=== PATIENT | male | born 1960 | race Caucasian/White ===

== ENCOUNTER 2019-02-17 05:59 | Emergency (ER) | payer OTHER ==
[~2019-02-17] VITALS: Ht 177.8 cm; Wt 77.1 kg
[2019-02-17 06:02] VITALS: BP 134/83
--- NOTE | 2019-02-17 06:18 | NUR ---
58 Y/O MALE C/O ABD PAIN X TODAY. PT STATES HE HAD DIAHRREA FOR 3 WEEKS AND SAW HIS PRIMARY DR 1 WEEK AND 1/2 AGO AND DIAGNOSISED HIM WITH POSS PARASITE AND GAVE HIM MEDICATION CALLED METRONIDAZOLE AND HAD STOOL SAMPLES DONE. PT ALSO SATTES HE WAS SCHEUDLE TO SEE HIS PRIMARY TODAY TO FOLLOW UP ON THE RESULTS. ABD PAIN IS LOCATED ON THE LUQ, NONTENDER, DISTENDED, HARD, ACTIVE BS. IN UMBILICAL REGION OF ABD SHOWS DISTENDTION AND PT STATES HE HAD A UMBILICAL HERNIA REPAIR. RATES PAIN 2/10 AND DESCRIBES IT SORENESS. ALLERGIES: PENICILLIN AND AMOXCILLIN. PMH: DM, UMBILICAL HERNIA.
--- NOTE | 2019-02-17 06:24 | NUR ---
VSS. FATHER AT BEDSIDE.
--- NOTE | 2019-02-17 06:24 | NUR ---
NO N,V. PT DENIES ANY BLOOD IN THE STOOL. AND SAID THE DIAHRREA SUBSIDE SINCE MEDICATION STARTED.
--- NOTE | 2019-02-17 06:31 | NUR ---
AT BEDSIDE TO YISSEL ROBLES
--- NOTE | 2019-02-17 06:41 | NUR ---
LAB AT BEDSIDE.
[2019-02-17 06:57] LABS: APPEARANCE,URINE CLEAR (CLEAR); BILIRUBIN,URINE NEGATIVE (NEGATIVE); BLOOD, URINE NEGATIVE (NEGATIVE); COLOR,URINE YELLOW (YELLOW); LEUKOCYTE ESTERASE ,URINE NEGATIVE (NEGATIVE); NITRITE, URINE NEGATIVE (NEGATIVE); PH,URINE 5.5 (5.0-9.0); UGLUCOSE 3+ (NEGATIVE)
[2019-02-17 06:57] LABS: BASOPHILS # (AUTO) 0.1 K/uL (0.00-0.22); BASOPHILS % (AUTO) 1.4 % (0.0-2.0); EOSINOPHILS # (AUTO) 0.2 K/uL (0-0.4); HEMATOCRIT 43.7 % (36-52); HEMOGLOBIN 14.8 g/dL (12.0-18.0); LYMPHOCYTES # (AUTO) 1.4 K/uL (2.0-11.5); LYMPHOCYTES % (AUTO) 23.4 % (20.5-51.1); MEAN CORPUSCULAR HEMOGLOBIN 30 pg (27-31); MEAN CORPUSCULAR HGB CONC 34 g/dL (33-37); MEAN CORPUSCULAR VOLUME 88.3 fL (80-94); MONOCYTES # (AUTO) 0.5 K/uL (0.8-1.0); MONOCYTES % (AUTO) 9.2 % (1.7-9.3); NEUTROPHILS # (AUTO) 3.6 K/uL (1.8-7.7); PLATELET COUNT (AUTO) 234 K/uL (140-450); RED BLOOD CELL COUNT(AUTO) 4.95 MIL/uL (4.20-6.10); RED CELL DISTRIBUTION WIDTH 13.8 % (11.6-13.7); WHITE BLOOD COUNT (AUTO) 5.8 K/uL (4.8-10.8)
[2019-02-17 07:04] LABS: RBC,URINE NONE SEEN /HPF (0-5); WBC,URINE 0-5 /HPF (0-5)
[2019-02-17 07:07] LABS: ANION GAP 11.2 (8-16); CARBON DIOXIDE 29.8 mmol/L (21-32)
[2019-02-17 07:22] LABS: ALBUMIN 4.2 g/dL (3.4-5.0); TOTAL BILIRUBIN 0.6 mg/dL (0.0-1.0)
[2019-02-17 07:24] LABS: BARBITURATE, URINE NEG. ng/ml (NEG <=200); BENZODIAZEPINE, URINE NEG. ng/mL (NEG <=200); CANNABINOID, URINE NEG. ng/mL (NEG <=50); COCAINE, URINE NEG. ng/mL (NEG <=300); OPIATE, URINE NEG. ng/mL (NEG <=2000); PHENCYCLIDINE SCREEN,URINE NEG. ng/mL (NEG <=25)
--- NOTE | 2019-02-17 07:46 | NUR ---
PT RESTING IN BED, VSS STABLE, FAMILY AT BEDSIDE, SIDE RAIL X1
--- NOTE | 2019-02-17 07:54 | NUR ---
DR KELLY AT BEDSIDE
[2019-02-17 08:07] VITALS: BP 156/93
--- NOTE | 2019-02-17 08:07 | NUR ---
Patient discharged with v/s stable. Written and verbal after care instructions given and explained. Patient verbalized understanding. Ambulatory with steady gait. All questions addressed prior to discharge. Advised to follow up with PMD.
== END 2019-02-17 08:07 | disposition home or self-care (01) ==
LOC: MED 05:59
DX: R10.9 Unspecified abdominal pain (principal); I10 Essential (primary) hypertension; F15.90 Other stimulant use, unspecified, uncomplicated; E11.65 Type 2 diabetes mellitus with hyperglycemia; Z88.0 Allergy status to penicillin
CPT/HCPCS: 36415; 80053; 80305; 81001; 83690; 85025; 99283

== ENCOUNTER 2021-01-01 14:32 | Emergency (ER) | payer OTHER ==
[~2021-01-01] VITALS: Ht 177.8 cm; Wt 79.8 kg
[2021-01-01 14:38] VITALS: BP 121/79
--- NOTE | 2021-01-01 14:44 | NUR ---
PT AMBULATED TO BED
--- NOTE | 2021-01-01 15:09 | NUR ---
60 Y/O MALE C/O HIGH BLOOD SUGAR FOR 3 DAYS IN 400'S. TAKES METFORMIN AT HOME. 330 BLOOD SUGAR IN TRIAGE. PT DENIES ANY SOB, CHEST PAIN, N/V, CHILLS AT THIS TIME. PT STATED HE HAS HAD SOME BLURRED VISION, MINOR TUBBS, AND FATIGUE FOR THE PAST 2 DAYS. SKIN IS DRY AND INTACT. BREATH SOUNDS CLEAR AND EQUAL CHEST RISE AND FALL NOTED MEDHX:DM ALLERGIES: PENICILLIN
[2021-01-01 16:26] LABS: ANION GAP 9.2 (8-16); CARBON DIOXIDE 29.3 mmol/L (21-32); POTASSIUM 4.5 mmol/L (3.5-5.1)
--- NOTE | 2021-01-01 16:52 | NUR ---
PT MOVED TO CHAIR C
[2021-01-01] MEDS: INSULIN LISPRO 100 UNITS/ML VIAL SUBQ ONE (17:01)
--- NOTE | 2021-01-01 17:02 | NUR ---
INSULIN HUMALOG 5 UNITS GIVEN TO PATIENT. LUZ ELENA WEST WITNESSED AND CO-SIGNED
--- NOTE | 2021-01-01 17:18 | NUR ---
PT PROVIDED WITH WATER AT THIS TIME
--- NOTE | 2021-01-01 17:18 | NUR ---
DR. BURGESS BEDSIDE SPEAKING WITH PATIENT
--- NOTE | 2021-01-01 17:26 | NUR ---
Patient appears to be resting comfortably in bed. Vital Signs within normal limits. Respirations even and unlabored.
[2021-01-01 17:32] VITALS: BP 119/64
== END 2021-01-01 17:32 | disposition home or self-care (01) ==
LOC: MED 14:32
DX: E11.65 Type 2 diabetes mellitus with hyperglycemia (principal); E86.0 Dehydration; Z88.0 Allergy status to penicillin
CPT/HCPCS: 36415; 80048; 96372; 99283; J1815

== ENCOUNTER 2021-12-27 10:43 | Emergency (ER) | payer OTHER ==
[~2021-12-27] VITALS: Ht 177.8 cm; Wt 80.5 kg
[2021-12-27 10:45] VITALS: BP 173/89
--- NOTE | 2021-12-27 10:55 | NUR ---
Satinder cunningham in ED - 12/27/21 at 1056 by MED1 PT AMB TO BED 1.
--- NOTE | 2021-12-27 10:58 | NUR ---
C/O LEFT BIG TOE PAIN & SMALL BLACK SPOT X 1 WEEK. BLOOD SUGAR 117 AT THIS TIME. PMH: DM TYPE2 MED: METFORMIN, GLIPIZIDE
[2021-12-27 11:54] VITALS: BP 137/82
--- NOTE | 2021-12-27 11:54 | NUR ---
Patient discharged with v/s stable. Written and verbal after care instructions ABOUT CORNS AND CALLUSES given and explained. Patient verbalized understanding. Ambulatory with steady gait. All questions addressed prior to discharge. Advised to follow up with PMD.
== END 2021-12-27 11:54 | disposition home or self-care (01) ==
LOC: MED 10:43
DX: L03.032 Cellulitis of left toe (principal); E11.9 Type 2 diabetes mellitus without complications; Z79.4 Long term (current) use of insulin; Z79.899 Other long term (current) drug therapy
CPT/HCPCS: 99281

== ENCOUNTER 2022-01-02 13:53 | Inpatient (IN) | payer OTHER ==
[~2022-01-02] VITALS: Ht 172.7 cm; Wt 73.5 kg
[2022-01-02 14:12] VITALS: BP 124/79
--- NOTE | 2022-01-02 15:51 | NUR ---
PT TAKEN TO XRAY VIA WHEELCHAIR
[2022-01-02 15:56] LABS: BASOPHILS # (AUTO) 0.1 K/uL (0.00-0.22); EOSINOPHILS # (AUTO) 0.2 K/uL (0-0.4); EOSINOPHILS % (AUTO) 2.8 % (0.0-4.0); HEMATOCRIT 43.1 % (36-52); HEMOGLOBIN 14.9 g/dL (12.0-18.0); LYMPHOCYTES # (AUTO) 1.7 K/uL (2.0-11.5); LYMPHOCYTES % (AUTO) 22.8 % (20.5-51.1); MEAN CORPUSCULAR HEMOGLOBIN 30 pg (27-31); MEAN CORPUSCULAR HGB CONC 35 g/dL (33-37); MEAN CORPUSCULAR VOLUME 87.9 fL (80-94); MONOCYTES # (AUTO) 0.7 K/uL (0.8-1.0); MONOCYTES % (AUTO) 9.1 % (1.7-9.3); NEUTROPHILS # (AUTO) 4.8 K/uL (1.8-7.7); NEUTROPHILS % (AUTO) 64.3 % (42.2-75.2); PLATELET COUNT (AUTO) 233 K/uL (140-450); RED CELL DISTRIBUTION WIDTH 14.6 % (11.6-13.7); WHITE BLOOD COUNT (AUTO) 7.5 K/uL (4.8-10.8)
--- NOTE | 2022-01-02 16:04 | NUR ---
PT BROUGHT BACK VIA WHEELCHAIR
--- NOTE | 2022-01-02 16:05 | NUR ---
61YO MALE PT C/O DIZZINESS X3DAYS. REPORTS FAINTING X2 / +HEAD INJURY WHILE GOING ON WALK ON SATURDAY. STATES HE FELT "LIGHTHEADED" PRIOR TO EPISODES. DENIES DIZZINESS TODAY BUT CAME TO ER DUE TO "FUZZY FEELING" AND "NOT FEELING RIGHT". DENIES CHEST PAIN, N/V/D, SOB, FEVER OR CHILLS. NOTES PREVIOUS S/S X1YEAR AGO DUE TO DEHYDRATION. PT HAS WATERBOTTLE OF 33.8 fl oz AT BEDSIDE AND STATES THAT IS ALL HE HAS DRANK TODAY. PT AAOX4, RESPIRATIONS EVEN AND UNLABORED. ON WEAVER APPRENTICE, BED AT LOWEST POSITION, BED RAILS UPX2. HX:DIABETES ALLERGIES:PENICILLIN
[2022-01-02 16:50] LABS: ALBUMIN 3.8 g/dL (3.4-5.0); ANION GAP 11.4 (8-16); ASPARTATE AMINOTRANSFERASE 17 U/L (15-37); CHLORIDE 102 mmol/L (98-107); CREATININE 1.1 mg/dL (0.6-1.3); GFR ARICAN-AMERICAN 88 mL/min (>90); GLUCOSE 113 mg/dL (74-106); POTASSIUM 4.4 mmol/L (3.5-5.1); SODIUM SERUM 140 mmol/L (136-145); TOTAL BILIRUBIN 0.4 mg/dL (0.0-1.0); UREA NITROGEN, BLOOD 20 mg/dL (7-18)
[2022-01-02] MEDS ORDERED: ASPIRIN 325 MG TAB PO ONE (17:05)
--- NOTE | 2022-01-02 17:05 | NUR ---
pt swabbed for covid(miguel). handed to lab
[2022-01-02] MEDS ORDERED: ASPIRIN 81 MG TAB.CHEW PO ONE (17:25)
[2022-01-02] MEDS ORDERED: LORazepam 2 MG/ML VIAL IVP PRN (17:55)
[2022-01-02] MEDS ORDERED: ONDANSETRON 4 MG/2 ML VIAL IVP PRN (17:55)
[2022-01-02] MEDS ORDERED: ACETAMINOPHEN 325 MG TAB PO PRN (17:55)
[2022-01-02] MEDS ORDERED: DEXTROSE 50% 50 ML SYR IVP PRN (17:55)
[2022-01-02] MEDS ORDERED: MAG SULF 2000 MG/WATER PREMIX 50 ML IV PRN (17:55)
[2022-01-02] MEDS ORDERED: DOCUSATE SODIUM 100 MG GELCAP PO PRN (17:55)
[2022-01-02] MEDS ORDERED: POTASSIUM CHLORIDE 10 MEQ TABER PO PRN (17:55)
[2022-01-02] MEDS ORDERED: ZOLPIDEM 10 MG TAB PO PRN (17:55)
[2022-01-02] MEDS ORDERED: MORPHINE SULFATE 2 MG/ML SYR IVP PRN (17:55)
[2022-01-02] MEDS ORDERED: NACL 0.9% 1,000 ML IV ONE (17:55)
[2022-01-02] MEDS ORDERED: METF-713 PO (18:01)
[2022-01-02] MEDS ORDERED: GLIP5TAB13 PO (18:03)
--- NOTE | 2022-01-02 18:09 | NUR ---
US AT BEDSIDE
--- NOTE | 2022-01-02 18:26 | NUR ---
61/M PRESENTS TO ED WITH C/O 2 SYNCOPAL EPISDOES 2 DAYS AGO. PATIENT REPORTS FALLING AND HITTING HIS HEAD, C/O "FEELING CLOUDY AND FUZZY." PATIENT DENIES RECENT INJURY OR TRAUMA PRIOR TO SYNCOPAL EPISODES. PATIENT REPORTS SIMILAR SYMPTOMS IN THE PAST AND STATES HE WAS TOLD HE WAS DEHYDRATED. PATIENT DENIES CP, SOB, N/V/D, DENIES NUMBNESS, TINGLING OR VISION CHANGES.
--- NOTE | 2022-01-02 18:57 | NUR ---
pt provided w/ dinner. pt awake and eating in bed
[2022-01-02 20:00] VITALS: BP 139/85
--- NOTE | 2022-01-02 20:17 | NUR ---
GET THE REPORT FROM ER NURSE MURIUM, PATIENT IS LYING ON BED, PATIENT IS ALERT ORIENTED X4, ALL FALL PRECAUTION MEASURE ARE IN PLACE, CALL LIGHT IS WITHIN THE REACH, WILL CONTINUE TO MONITOR PATIENT.
--- NOTE | 2022-01-02 21:00 | NUR ---
2ND TROPONIN LEVEL IS 187, NOT REPORTED DOCTOR DUE TO TRENDING DOWN, WILL CONTINUE TO MONITOR PATIENT.
[2022-01-02] MEDS: BLOOD GLUCOSE MONITORING 1 DEV DEV FS SCH (21:09)
[2022-01-02] MEDS: INSULIN LISPRO SLIDING SCALE 100 UNITS/ML VIAL SUBQ PRN (21:15)
--- NOTE | 2022-01-02 21:41 | NUR ---
PATIENT IS LYING ON BED,VITAL SIGN IS WITHIN THE NORMAL RANGE ,ALL SCHEDULE MEDICATION IS GIVEN PER DOCTOR ORDER, PATIENT BLOOD SUGAR IS 163, 2 UNIT INSULIN IS GIVEN PER DOCTOR ORDER, ALL SCHEDULE MEDICATION IS GIVEN PER DOCTOR ORDER, CALL LIGHT IS WITHIN THE REACH, WILL CONTINUE TO MONITOR PATIENT.
[2022-01-02] MEDS ORDERED: LOVENOX 1MG/KG Q12H SUBQ SCH (21:55)
[2022-01-02] MEDS ORDERED: ENOXAPARIN 80 MG/0.8 ML SYR SUBQ SCH (22:00)
[2022-01-03] VITALS: BP 138/81
--- NOTE | 2022-01-03 01:11 | NUR ---
VITAL SIGN IS WITHIN THE NORMAL RANGE, PATIENT IS LYING ON BED, NO ANY COMPLAIN OF PAIN OR SHORTNESS OF BREATH AT THIS TIME, CALL LIGHT IS WITHIN THE REACH, WILL CONTINUE TO MONITOR PATIENT.
--- NOTE | 2022-01-03 02:35 | NUR ---
PATIENT IS WALKING ON HALLWAY AND REACH OUT TO CHARGE NURSE ROSARIO, PATIENT WAS UPSET ABOUT ROOM MATE AND ROOM MATE KEEP TALKING AND DISTURBING HIS SLEEP AND STRESSING OUT, HE REQUESTED TO CHANGE ROOM FROM 112A , WE MOVED PATIENT FROM ROOM 112-A TO 121-A , WILL CONTINUE TO MONITOR PATIENT.
--- NOTE | 2022-01-03 05:01 | NUR ---
PATIENT IS UPSET AGAIN AND REFUSED TO TAKE 0400 AM VITAL SIGN, PATIENT SAID HE WANTS TO LEAVE HOSPITAL AND HE SAID YOU ARE GUYS NOT TREATING ME AND NOT GIVING ME MY HOME MEDICATION IM BEEN HERE SINCE AFTERNOON AND NOBODY IS TREATING ME, I WILL HIRE SALES AND SERVICE ENGINEER AND FILL FOR U GUYS , IM LEAVING HOSPITAL AND I WILL NOT SIGN ANY AMA FORM , I DONT WANT ANY INSULIN OR ACCU CHECK,WE EXPLAIN THE PATIENT TREATMENT , CALL LIGHT IS WITHIN THE REACH, WILL CONTINUE TO MONITOR PATIENT.
--- NOTE | 2022-01-03 06:31 | NUR ---
PATIENT REFUSED TO CHECK BLOOD SUGAR AND REFUSED TO GET INSULIN, PATIENT IS USING BAD WORDS TO NURSES IN FRONT OF LABORATORY PEOPLE, WILL CONTINUE TO MONITOR PATIENT.
[2022-01-03] MEDS: BLOOD GLUCOSE MONITORING 1 DEV DEV FS SCH ×4 (06:34→20:36)
[2022-01-03 06:55] LABS: BASOPHILS # (AUTO) 0.1 K/uL (0.00-0.22); BASOPHILS % (AUTO) 0.9 % (0.0-2.0); EOSINOPHILS # (AUTO) 0.2 K/uL (0-0.4); EOSINOPHILS % (AUTO) 2.5 % (0.0-4.0); HEMATOCRIT 40.5 % (36-52); HEMOGLOBIN 14.1 g/dL (12.0-18.0); LYMPHOCYTES % (AUTO) 23.5 % (20.5-51.1); MEAN CORPUSCULAR HEMOGLOBIN 30 pg (27-31); MEAN CORPUSCULAR HGB CONC 35 g/dL (33-37); MEAN CORPUSCULAR VOLUME 86.4 fL (80-94); MONOCYTES # (AUTO) 0.7 K/uL (0.8-1.0); MONOCYTES % (AUTO) 8.5 % (1.7-9.3); NEUTROPHILS # (AUTO) 5.5 K/uL (1.8-7.7); NEUTROPHILS % (AUTO) 64.6 % (42.2-75.2); PLATELET COUNT (AUTO) 229 K/uL (140-450); RED BLOOD CELL COUNT(AUTO) 4.68 MIL/uL (4.20-6.10); RED CELL DISTRIBUTION WIDTH 14.2 % (11.6-13.7); WHITE BLOOD COUNT (AUTO) 8.5 K/uL (4.8-10.8)
--- NOTE | 2022-01-03 07:07 | NUR ---
PATIENT COMPLAINING OF CHEST PAIN AND LEFT SIDE NUMBNESS , CHECK PATIENT VITAL SIGN BP: 165/81,HR: 49/MIN, MASSAGE DOCTOR MARIE ABOUT PATIENT COMPLAIN AND DOCTOR MARIE REPLAYED BACK WITH NITRO 0.4 SUBLINGUAL ONCE, WILL FOLLOW DOCTOR ORDER, AND WILL CARRIED OUT, CALL LIGHT IS WITHIN THE REACH, WILL CONTINUE TO MONITOR PATIENT.
[2022-01-03] MEDS ORDERED: NITROGLYCERIN 0.4 MG TAB SL SCH (07:10)
[2022-01-03 07:11] LABS: ANION GAP 10.8 (8-16); CARBON DIOXIDE 27.6 mmol/L (21-32); POTASSIUM 4.4 mmol/L (3.5-5.1)
--- NOTE | 2022-01-03 07:28 | NUR ---
GAVE REPORT TO THE MORNING NURSE UCHE FOR CONTINUOS OF CARE, PATIENT IS STABLE.
--- NOTE | 2022-01-03 07:29 | NUR ---
RECEIVED REPORT FROM ORDER ADMINISTRATOR NURSE FOR CONTINUITY OF CARE. PT IN BED AWAKE, AND YELLING. PER ORDER ADMINISTRATOR NURSE PT WAS UPSET AND ANGRY WITH STAFF. AT CHANGE OF SHIFT, ORDER ADMINISTRATOR NURSE ADMINISTERED NITROGLYCERIN DUE TO PT COMPLAIN OF CHEST PAIN. FAMILY AT BED SIDE AT THIS TIME. FAMILY MEMBER STATES THAT PT CALLED HER AND STATED "THEY ARE USELESS HERE. THEY DONT WANT TO GIVE ME WHAT I WANT. IM GONNA LEAVE. THEY ARENT DOING A THING FOR ME THEY ARE TRYING TO KILL ME". INFORMED FAMILY MEMBER OF ORDER ADMINISTRATOR NURSE REPORT. FAMILY MEMBER STATED SHE WILL SPEAK WITH PT. PT IS ALERT AND ORIENTED X4, ABLE TO VERBALIZE NEEDS. PT IS ON TELEMETRY MONITORING, SR AT THIS TIME. PT IS ON ROOM AIR, NO SIGNS OF DISTRESS NOTED. PT IS CONTINENT OF BOWEL AND BLADDER. BOWEL SOUNDS PRESENT IN ALL QUADRANTS. PT HAS IV TO RAC, 20G, SALINE LOCKED. SKIN IS WARM, DRY, AND INTACT. CALL LIGHT WITHIN REACH. ALL SAFETY MEASURES IN PLACE. WILL CONTINUE TO MONITOR.
[2022-01-03 08:00] VITALS: BP 131/68
--- NOTE | 2022-01-03 08:00 | NUR ---
DISCUSSED AND REVIEWED PT PLAN OF CARE WITH LUZ ELENA IVEY. PT IN STABLE CONDITION.
[2022-01-03] MEDS: ASPIRIN 81 MG TAB.CHEW PO SCH (08:39)
--- NOTE | 2022-01-03 08:41 | NUR ---
ADMINISTERED SCHEDULED ASA. PT STATED HE DID NOT KNOW IF HE WANTED TO TAKE SCHEDULED LOVENOX. STATED HE WOULD LIKE TIME TO THINK ABOUT IT AND HE WILL LET ME KNOW AT A LATER TIME.
[2022-01-03] MEDS: ENOXAPARIN 80 MG/0.8 ML SYR SUBQ SCH ×2 (09:00→10:04)
--- NOTE | 2022-01-03 09:46 | NUR ---
PT REFUSED MEDICATION LOVENOX. STATED "I DONT WANT IT". EDUCATED PT ON BENEFITS OF MEDICATION. PT CONTINUES TO REFUSE.
--- NOTE | 2022-01-03 10:05 | NUR ---
PT CALLED NURSE, STATED HE CHANGED HIS MIND, HE WOULD LIKE MEDICATION LOVENOX. CALLED PHARMACY, INFORMED THEM OF SITUATION. PER PHARMACY, OK TO PULL MEDICATION ONCE AGAIN AND ADMINISTER.
--- NOTE | 2022-01-03 10:39 | NUR ---
PATIENT HAS BEEN SCREENED AND CATEGORIZED LOW NUTRITION RISK. PATIENT WILL BE SEEN WITHIN 7 DAYS OF ADMISSION. 01/09/[address] M[address]L MOULTON RD
--- NOTE | 2022-01-03 11:37 | NUR ---
PT BLOOD GLUCOSE WAS 169. PT REFUSED INSULIN. STATES "I DONT USE IT AT HOME SO I DONT WANT IT WHILE IM HERE". EDUCATED PT REGARDING BENEFITS OF INSULIN. PT CONTINUES TO REFUSE. WILL CONTINUE TO MONITOR.
[2022-01-03 12:00] VITALS: BP 125/68
[2022-01-03] MEDS: glipiZIDE 5 MG TAB PO SCH (12:20)
--- NOTE | 2022-01-03 13:06 | NUR ---
ASSISTED PT TO REST ROOM. PT TOLERATED WELL. NO COMPLAINTS OF DIZZINESS. NO COMPLAINTS OF PAIN OR DISCOMFORT. CALL LIGHT WITHIN REACH. ALL SAFETY MEASURES IN PLACE. WILL CONTINUE TO MONITOR.
--- NOTE | 2022-01-03 13:37 | NUR ---
RN ADMINISTERED MAGNESIUM IVPB. PT TOLERATING WELL. WILL CONTINUE TO MONITOR.
--- NOTE | 2022-01-03 15:14 | NUR ---
DC PLANNING MET WITH PT AT BEDSIDE TO COMPLETE ASSESSMENT. PT REPORTS RESIDING AT HOME WITH FAMILY (FATHER, DAUGHTER, ANNE AND GRANDCHILDREN) AT THE ADDRESS LISTED ON FILE. PATIENT IDENTIFIED PERICO EM, FATHER, AND YANNICK EM, DAUGHTER, EMERGENCY CONTACTS. PATIENT DENIES AD IN PLACE AND DECLINED AD OFFERED BY GENE. PATIENT REPORTS MEETING WITH PCP, DR GEO HAMPTON, NEEDED, LAST VISIT 1 MONTH AGO. PT REPORTS MEDICATION COMPLIANCE AND DENIES BARRIERS IN ACCESS TO NEEDED MEDICATIONS. PT REPORTS RECEIVING MEDICATION FROM [facility] ON IN [place], WHEN NEEDED. PATIENT REPORTS BEING INDEPENDENT IN ALL ACTIVITIES AND DENIES USE OF DME. PATIENT COMPLETES ALL ADL'S INDEPENDENTLY. PT DENIES MENTAL HEALTH HX. 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 PATIENT REPORTS GEOPHYSICAL COMPUTER USE SPANNING 30 YRS. PT REPORTS RECENTLY BECOMING SOBER, PT REPORTS BEING SOBER FOR 1 MONTH. SW PROVIDED PT WITH PSYCHOEDUCATION ON GEOPHYSICAL COMPUTER SUBSTANCE USE. PT RECEPTIVE AND REPORTS TRULY TRYING TO BECOME SOBER. SW ATTEMPTED TO PROVIDE PT WITH SUBSTANCE USE RESOURCES HOWEVER WAS RESISTANT IN ACCEPTING. SW HIGHLY ENCOURAGED PATIENT TO TAKE SIMPLY A RESOURCE, IN THE EVENT HE EVER NEEDED, PT AGREED AND ACCEPTED SUBSTANCE USE RESOURCES. PT REPORTS HX OF ALCOHOL USE HOWEVER, REPORTS HE HAS BEEN SOBER FOR 20 YRS. PT REPORTS HX OF DIABETES AND REPORTS DIABETES IN WELL MANAGED. PATIENT REPORTS NUTRITION COMPLIANCE AND REPORTS ADEQUATE FOOD IN THE HOME. PT REPORTS RECEIVING [employer] BENEFITS OF $220/MONTHLY. PT REPORTS DC PLAN IS TO RETURN HOME WITH FAMILY PROVIDING TRANSPORTATION, WHEN MEDICALLY STABLE. SW INQUIRED ON ADDITIONAL RESOURCES NEEDED, PT DECLINED. SW OFFERED TO SCHEDULE FOLLOW UP APPT WITH PCP HOWEVER, PT DECLINED AND REPORTS HE WILL MAKE APPT.
--- NOTE | 2022-01-03 15:43 | NUR ---
MAGNESIUM COMPLETE. NO COMPLAINTS OF PAIN OR DISCOMFORT. PT TOLERATED WELL. WILL CONTINUE TO MONITOR.
[2022-01-03 16:00] VITALS: BP 128/90
--- NOTE | 2022-01-03 16:21 | NUR ---
PT BLOOD GLUCOSE 111. NO INSULIN COVERAGE NEEDED PER SLIDING SCALE. WILL CONTINUE TO MONITOR.
--- NOTE | 2022-01-03 19:19 | NUR ---
ENDORSED PT TO CHIEF ESTIMATOR NURSE FOR CONTINUITY OF CARE. INFORMED PT AND FAMILY OF [place] STRESS TEST SCHEDULED FOR TOMORROW. INFORMED PT OF NPO AT MIDNIGHT. PT IS STABLE.
--- NOTE | 2022-01-03 19:30 | NUR ---
RECEIVED REPORT FROM THE DAY NURSE, ASSUMED CARE. PATIENT LYING ON THE BED, IS AWAKE, ALERT AND ORIENTED. NO SIGNS OF DISTRESS NOTED. FAMILY AT BEDSIDE. CALL LIGHT WITHIN REACH. WILL CONTINUE TO MONITOR.
[2022-01-03 20:00] VITALS: BP 128/85
[2022-01-03] MEDS: METOPROLOL 25 MG TAB PO SCH (20:34)
[2022-01-03] MEDS: INSULIN LISPRO SLIDING SCALE 100 UNITS/ML VIAL SUBQ PRN (20:36)
--- NOTE | 2022-01-03 20:36 | NUR ---
PATIENT USED OWN GLUCOMETER TO CHECK BS, RN AT THE BEDSIDE BS-164 MG/DL. PT REFUSED INSULIN COVERAGE.
--- NOTE | 2022-01-03 21:00 | NUR ---
DUE MEDICATION GIVEN ORDERED. BP 128/85 MMHG.
--- NOTE | 2022-01-03 21:44 | NUR ---
PROVIDED WARM BLANKET. REFUSED HS SNACKS.
--- NOTE | 2022-01-03 23:36 | NUR ---
PATIENT WAS MOVED TO ROOM 120A, PT HAS HIS PERSONAL BELONGINGS WITH HIM. PATIENT ADVISED OF HIS NPO STATUS AFTER MIDNIGHT, PT VERBALIZED UNDERSTANDING.
[2022-01-04] VITALS: BP 110/72
--- NOTE | 2022-01-04 00:40 | NUR ---
PATIENT LATEST VITALS TEMP 98.7, HR 69 BPM, BP 110/72 MMHG ,RESP 17 BREATHS/MIN, SAT @ 98% ON ROOM AIR. RESIDENT IS ASLEEP, NO SIGNS OF DISTRESS NOTED, CALL LIGHT WITHIN REACH, WILL CONTINUE TO MONITOR.
[2022-01-04 04:00] VITALS: BP 116/73
[2022-01-04 05:53] LABS: BASOPHILS # (AUTO) 0.1 K/uL (0.00-0.22); BASOPHILS % (AUTO) 1.2 % (0.0-2.0); EOSINOPHILS # (AUTO) 0.2 K/uL (0-0.4); EOSINOPHILS % (AUTO) 3.2 % (0.0-4.0); HEMATOCRIT 40.8 % (36-52); LYMPHOCYTES # (AUTO) 2.1 K/uL (2.0-11.5); LYMPHOCYTES % (AUTO) 26.8 % (20.5-51.1); MEAN CORPUSCULAR HEMOGLOBIN 30 pg (27-31); MEAN CORPUSCULAR HGB CONC 34 g/dL (33-37); MEAN CORPUSCULAR VOLUME 86.2 fL (80-94); MONOCYTES # (AUTO) 0.7 K/uL (0.8-1.0); MONOCYTES % (AUTO) 9.5 % (1.7-9.3); NEUTROPHILS # (AUTO) 4.6 K/uL (1.8-7.7); NEUTROPHILS % (AUTO) 59.3 % (42.2-75.2); PLATELET COUNT (AUTO) 217 K/uL (140-450); RED BLOOD CELL COUNT(AUTO) 4.74 MIL/uL (4.20-6.10); WHITE BLOOD COUNT (AUTO) 7.8 K/uL (4.8-10.8)
--- NOTE | 2022-01-04 06:05 | NUR ---
SPOKE WITH BLAYNE, DAUGHTER INFORMED OF TIME OF STRESS TEST AND NEW RM NUMBER [id number].
[2022-01-04 06:14] LABS: CARBON DIOXIDE 26.6 mmol/L (21-32); POTASSIUM 4.6 mmol/L (3.5-5.1)
[2022-01-04] MEDS: BLOOD GLUCOSE MONITORING 1 DEV DEV FS SCH ×4 (06:42→20:16)
--- NOTE | 2022-01-04 06:43 | NUR ---
PATIENT USED OWN GLUCOMETER, BS-128 MG/DL. PATIENT AWARE OF NPO STATUS. DENIES PAIN. CALL LIGHT IN REACH.
--- NOTE | 2022-01-04 07:26 | NUR ---
ENDORSED PT TO DAY NURSE FOR CONTINUITY OF CARE. PT IS STABLE.
[2022-01-04 08:00] VITALS: BP 116/73
[2022-01-04] MEDS: metFORMIN 850 MG TAB PO SCH (08:53)
[2022-01-04] MEDS: glipiZIDE 5 MG TAB PO SCH (08:53)
[2022-01-04] MEDS: ASPIRIN 81 MG TAB.CHEW PO SCH (08:53)
[2022-01-04] MEDS: METOPROLOL 25 MG TAB PO SCH ×2 (08:54→20:09)
[2022-01-04] MEDS: ENOXAPARIN 40 MG/0.4 ML SYR SUBQ SCH (08:54)
[2022-01-04] MEDS ORDERED: REGADENOSON 0.4 MG/5 ML SYR IV SCH (09:00)
[2022-01-04 12:00] VITALS: BP 116/73
[2022-01-04 16:00] VITALS: BP 115/81
--- NOTE | 2022-01-04 19:34 | NUR ---
RECEIVED PATIENT FROM AM NURSE, PATIENT IS AWAKE ALERT AND ORIENTED. PATIENT VERBALIZED WANTING TO GO HOME, INFORMED NO DISCHARGE ORDERS YET. DAUGHTER WAS NOTIFIED. CO-NURSE SPOKE WITH DR. SALAZAR INFORMED OF PATIENT'S WANTING TO GO HOME. PER MD, ASKED DR. FERGUSON IF MEDICALLY CLEARED. CALLED DR. FERGUSON, AWAITING CALL BACK, PATIENT INFORMED. SAFETY PRECAUTIONS IN PLACE.
[2022-01-04 20:00] VITALS: BP 108/60
--- NOTE | 2022-01-04 20:03 | NUR ---
SPOKE WITH DR. FERGUSON, NOT MEDICALLY CLEARED YET, AWAITING RESULTS OF [place]ISC[place] STRESS TEST. PATIENT MADE AWARE AND AGREED TO STAY FOR THE NIGHT. DAUGHTER BLAYNE MADE AWARE.
--- NOTE | 2022-01-04 20:16 | NUR ---
PATIENT USED OWN GLUCOMETER, BLOOD SUGAR-151 MG/DL, REFUSED INSULIN.
--- NOTE | 2022-01-04 20:55 | NUR ---
PROVIDED SANDWICH AND MILK PER PATIENT'S REQUEST.
--- NOTE | 2022-01-04 21:19 | NUR ---
PATIENT IS LYING ON THE BED, ASLEEP, BREATHING EVEN AND NON LABORED ON ROOM AIR, SAFETY PRECAUTIONS IN PLACE, CALL LIGHT WITHIN REACH.
--- NOTE | 2022-01-04 22:01 | NUR ---
PROVIDED WARM BLANKET PER PATIENT'S REQUEST.
--- NOTE | 2022-01-05 | NUR ---
RESIDENT REFUSED HIS VITALS TO BE TAKEN, DENIES PAIN/DISCOMFORT AT THIS TIME. CALL LIGHT WITHIN REACH.
--- NOTE | 2022-01-05 02:00 | NUR ---
ROUNDING DONE, PATIENT ASLEEP. NO S/SX OF PAIN NOR DISCOMFORT. CALL LIGHT WITHIN REACH.
[2022-01-05 04:00] VITALS: BP 121/70
[2022-01-05 05:52] LABS: BASOPHILS # (AUTO) 0.1 K/uL (0.00-0.22); BASOPHILS % (AUTO) 1.2 % (0.0-2.0); EOSINOPHILS # (AUTO) 0.3 K/uL (0-0.4); EOSINOPHILS % (AUTO) 3.2 % (0.0-4.0); HEMATOCRIT 41.8 % (36-52); HEMOGLOBIN 14.4 g/dL (12.0-18.0); LYMPHOCYTES # (AUTO) 2.3 K/uL (2.0-11.5); LYMPHOCYTES % (AUTO) 27.6 % (20.5-51.1); MEAN CORPUSCULAR HEMOGLOBIN 30 pg (27-31); MEAN CORPUSCULAR HGB CONC 35 g/dL (33-37); MEAN CORPUSCULAR VOLUME 86.3 fL (80-94); MONOCYTES # (AUTO) 0.9 K/uL (0.8-1.0); NEUTROPHILS # (AUTO) 4.8 K/uL (1.8-7.7); PLATELET COUNT (AUTO) 222 K/uL (140-450); RED BLOOD CELL COUNT(AUTO) 4.84 MIL/uL (4.20-6.10); RED CELL DISTRIBUTION WIDTH 14.3 % (11.6-13.7); WHITE BLOOD COUNT (AUTO) 8.4 K/uL (4.8-10.8)
[2022-01-05 06:29] LABS: ANION GAP 13.7 (8-16); CARBON DIOXIDE 24.3 mmol/L (21-32); CREATININE 1.1 mg/dL (0.6-1.3)
[2022-01-05] MEDS: BLOOD GLUCOSE MONITORING 1 DEV DEV FS SCH ×2 (06:39→11:58)
[2022-01-05 08:00] VITALS: BP 115/70
[2022-01-05] MEDS: METOPROLOL 25 MG TAB PO SCH (09:00)
[2022-01-05] MEDS: metFORMIN 850 MG TAB PO SCH (09:55)
[2022-01-05] MEDS: glipiZIDE 5 MG TAB PO SCH (09:56)
[2022-01-05] MEDS: ENOXAPARIN 40 MG/0.4 ML SYR SUBQ SCH (09:58)
[2022-01-05] MEDS: ASPIRIN 81 MG TAB.CHEW PO SCH (09:59)
[2022-01-05] MEDS ORDERED: METO25TA PO (10:52)
[2022-01-05] MEDS ORDERED: ASPI81CT95 PO (10:52)
[2022-01-05 12:00] VITALS: BP 106/54
[2022-01-05] MEDS: INSULIN LISPRO SLIDING SCALE 100 UNITS/ML VIAL SUBQ PRN (12:03)
[2022-01-05 12:08] VITALS: BP 115/67
--- NOTE | 2022-01-05 13:22 | NUR ---
Patient discharged accompanied by me and father. Discharged via wheelchair, transported by private vehicle; all belongings returned to patient; given discharge teaching printed, verbalizes understanding; IV removed with intact tip; new prescription for aspirin and metoprolol erx sent to patient's pharmacy; tele box removed and returned to hospital monitor
== END 2022-01-05 13:20 | disposition home or self-care (01) | DRG 204 ==
LOC: MED 13:53 → MTU 17:51
PROVIDERS: ADMIT Family Medicine; ATTEND Family Medicine
DX: R55 Syncope and collapse (principal); N17.0 Acute kidney failure with tubular necrosis; I21.A1 Myocardial infarction type 2; I49.3 Ventricular premature depolarization; E86.0 Dehydration; E83.42 Hypomagnesemia; R77.8 Other specified abnormalities of plasma proteins; Z20.822 Contact with and (suspected) exposure to COVID-19; F15.10 Other stimulant abuse, uncomplicated; Z88.0 Allergy status to penicillin; Z79.899 Other long term (current) drug therapy
CPT/HCPCS: 36415; 70450; 71045; 80048; 80053; 82948; 83735; 84484; 85025; 87081; 93005; 93017; 93880; 97163-GP; 99285; A9500; A9502; J1650; J2785; J3475; Q0092